=== PATIENT | male | born 1950 ===

== ENCOUNTER 2017-10-09 16:14 | Inpatient (IN) | payer MEDICARE ==
--- NOTE | 2017-10-09 16:56 | ED PDOC ---
HPI: Chest Pain Time Seen by Provider: 10/09/17 16:27 Chief Complaint (Nursing): Chest Pain Chief Complaint (Provider): Chest Pain History Per: Patient History/Exam Limitations: no limitations Onset/Duration Of Symptoms: Hrs (x 5) Current Symptoms Are (Timing): Still Present Additional Complaint(s): Travis Sutherland is a 67 year old man with a past medical history of hypertension and diabetes who presents to the ED complaining of chest pain, onset 5 hours ago. States chest pain started when he was walking. It is midline sub sternal and pressure like but mild. He reports that the pain improves with rest but returns when he ambulates. The patient saw his PMD for symptoms and was sent to the ED for evaluation. He denies ever experiencing similar symptoms. Also denies shortness of breath, dizziness, leg swelling, cough, malaise or fatigue. PMD: Dr. Omkar Canada MD Past Medical History Reviewed: Historical Data, Nursing Documentation, Vital Signs Vital Signs: Last Vital Signs Temp 98 F 10/09/17 16:19 Pulse 68 10/09/17 16:19 Resp 18 10/09/17 16:19 BP 127/64 10/09/17 16:19 Pulse Ox 98 10/09/17 20:03 - Medical History PMH: Diabetes, HTN - Surgical History Other surgeries: right ankle fracture repair - Family History Family History: States: Hypertension Other Family History: anxiety - Social History Current smoker - smoking cessation education provided: No Alcohol: None Drugs: Denies - Home Medications Home Medications: Ambulatory Orders Medication Instructions Recorded Ergocalciferol (Vitamin D2) 50,000 unit PO QWK 10/09/17 [Vitamin D2] Losartan/Hydrochlorothiazide 1 tab PO DAILY 10/09/17 [Hyzaar 100-12.5 Tablet] Sitagliptin Phos/Metformin HCl 1 tab PO BID 10/09/17 [Janumet 50-1,000 mg Tablet] Tamsulosin [Flomax] 0.4 mg PO DAILY 10/09/17 - Allergies Allergies/Adverse Reactions: Allergies Allergy/AdvReac Type Severity Reaction Status Date / Time No Known Allergies Allergy Verified 10/09/17 16:19 Review of Systems ROS Statement: Except As Marked, All Systems Reviewed And Found Negative (as per HPI) Constitutional: Negative for: Malaise, Other (fatigue) Cardiovascular: Positive for: Chest Pain Respiratory: Negative for: Cough, Shortness of Breath Musculoskeletal: Negative for: Other (leg swelling) Neurological: Negative for: Dizziness Physical Exam - Reviewed Nursing Documentation Reviewed: Yes Vital Signs Reviewed: Yes - Physical Exam Appears: Positive for: Non-toxic, No Acute Distress Head Exam: Positive for: ATRAUMATIC, NORMOCEPHALIC Skin: Positive for: Warm, Dry Eye Exam: Positive for: EOMI, PERRL ENT: Negative for: Pharyngeal Erythema, Tonsillar Exudate Neck: Positive for: Painless ROM, Supple Cardiovascular/Chest: Positive for: Regular Rate, Rhythm, Chest Non Tender. Negative for: Murmur Respiratory: Positive for: Normal Breath Sounds. Negative for: Wheezing Gastrointestinal/Abdominal: Positive for: Soft. Negative for: Tenderness Back: Positive for: Normal Inspection. Negative for: Decreased ROM Extremity: Positive for: Normal ROM. Negative for: Deformity Lymphatic: Negative for: Adenopathy Neurologic/Psych: Positive for: Alert. Negative for: Motor/Sensory Deficits - Laboratory Results Result Diagrams: 10/09/17 17:02 10/09/17 17:02 - ECG O2 Sat by Pulse Oximetry: 98 (RA) Pulse Ox Interpretation: Normal Medical Decision Making Medical Decision Making: Impression: chest pain Differential diagnoses include, but are not limited to costochondritis, CHF, pulmonary edema, bronchitis Patient needs to be hospitalized for chest pain due to the cardiac risk factors. He will need serial troponins to rule out acute coronary syndrome. Initial Plan: --Blood screen and type --EKG --BNP --CMP --Urine drug screen --Magnesium --Phosphorus --Troponin I --Troponin I Q8H --Troponin I Q8H --Urine dipstick --CBC --D-Dimer --Partial Thromboplastin time --Prothrombin time --Chest x-ray --Aspirin 162 mg PO Time: 17:03 Chest x-ray FINDINGS: LUNGS: No active pulmonary disease. PLEURA: No significant pleural effusion identified. No pneumothorax apparent. CARDIOVASCULAR: Normal. OSSEOUS STRUCTURES: No significant abnormalities. VISUALIZED UPPER ABDOMEN: Normal. OTHER FINDINGS: None. IMPRESSION: No active disease. Time: 17:57 --Angio Chest PE protocol [CT] was ordered because of high levels in D-Dimer. Time: 19:52 --Discussed with Dr. Costello, hospitalist, to admit patient of Dr. Canada because of chest pain --Discussed with patient and he is aware of plan. Chest CT FINDINGS: Limitations: The examination is degraded by breathing artifact. Pulmonary arteries: No acute embolus in the main, lobar, or segmental pulmonary arteries. No definite filling defects in the subsegmental or more peripheral pulmonary arteries. Aorta: No dissection or other acute abnormality of the imaged aorta. Ectatic ascending aorta, measuring up to 3.7 cm in diameter. Mild fusiform aneurysmal dilation of the descending thoracic aorta, measuring up to 3.3 cm in diameter. Lungs: Minimal bilateral dependent atelectasis. Several noncalcified pulmonary nodules, the largest of which measures 6 mm. The central airways are patent. Pleural space: No pleural fluid collection. No pneumothorax. Heart: Coronary artery calcification. Cardiomegaly. No pericardial fluid collection. Bones/joints: No acute findings. Soft tissues: No acute findings. Lymph nodes: No acute findings. IMPRESSION: 1. Evaluation for pulmonary emboli is limited by breathing artifact. No central pulmonary embolus. No definite filling defects in the subsegmental or more peripheral pulmonary arteries but small, peripheral pulmonary emboli cannot be excluded. 2. Coronary artery calcification. Cardiomegaly. 3. Several subcentimeter pulmonary nodules. Follow up per institution protocol. 4. Additional non-acute findings as described above. Scribe Attestation: Documented by Norma Velasco, acting as a scribe for Kelly Dietrich MD Provider Scribe Attestation: All medical record entries made by the Scribe were at my direction and personally dictated by me. I have reviewed the chart and agree that the record accurately reflects my personal performance of the history, physical exam, medical decision making, and the department course for this patient. I have also personally directed, reviewed, and agree with the discharge instructions and disposition. Disposition - Clinical Impression Clinical Impression: Chest pain, Angina effort - Disposition Disposition Time: 16:45 Condition: FAIR - Pt Status Changed To: Hospital Disposition Of: Observation - POA Present On Arrival: None
[2017-10-09 17:11] LABS: BASO % 0.5 % (0.0-2.0); EOS # 0.1 K/uL (0.0-0.7); HEMATOCRIT 42.1 % (35.0-51.0); LYMPH # 2.5 K/uL (1.0-4.3); MEAN CELL VOLUME 93.2 fl (80.0-94.0); MEAN CORPUSCULAR HEMOGLOBIN 31.6 pg (27.0-31.0); MEAN CORPUSCULAR HGB CONC 33.9 g/dL (33.0-37.0); MEAN PLATELET VOLUME 8.9 fl (7.2-11.7); MONO # 0.7 K/uL (0.0-0.8); MONO % 10.1 % (0.0-10.0); NEUT # 3.7 K/uL (1.8-7.0); NEUT % 52.4 % (50.0-75.0); NRBC % 0.1 % (0.0-0.0); RED CELL DISTRIBUTION WIDTH 12.8 % (11.5-14.5); WHITE BLOOD COUNT 7.1 K/uL (4.8-10.8)
[2017-10-09 17:24] LABS: ALB/GLOB RATIO 1.4 (1.0-2.1); ALKALINE PHOSPHATASE 63 U/L (38-126); ALT/SGPT 53 U/L (21-72); AST/SGOT 28 U/L (17-59); BILIRUBIN,TOTAL 0.6 mg/dl (0.2-1.3); BLOOD UREA NITROGEN 14 mg/dl (9-20); CALCIUM 9.5 mg/dL (8.4-10.2); CARBON DIOXIDE 25 mmol/L (22-30); CHLORIDE 103 mmol/L (98-107); GFR AFRICAN-AMERICAN > 60; GLUCOSE,RANDOM 118 mg/dL (75-110); MAGNESIUM 1.9 MG/DL (1.6-2.3); POTASSIUM 3.9 MMOL/L (3.6-5.0); SODIUM 139 mmol/l (132-148); TOTAL PROTEIN 7.6 G/DL (6.3-8.2)
[2017-10-09 17:33] LABS: PARTIAL THROMBOPLASTIN TIME 26.9 Seconds (25.6-37.1)
--- NOTE | 2017-10-09 18:26 | RAD ---
HISTORY: Chest pain. COMPARISON: No prior. TECHNIQUE: Chest PA and lateral FINDINGS: LUNGS: No active pulmonary disease. PLEURA: No significant pleural effusion identified. No pneumothorax apparent. CARDIOVASCULAR: Normal. OSSEOUS STRUCTURES: No significant abnormalities. VISUALIZED UPPER ABDOMEN: Normal. OTHER FINDINGS: None. IMPRESSION: No active disease. Concordant results with the preliminary interpretation rendered by the emergency department physician procedure.
[2017-10-09] MEDS ORDERED: Sodium Chloride 0.9% 50 ML IV ONE (18:41)
[2017-10-09] MEDS ORDERED: Iodixanol 320 MG/ML 100 ML BOTTLE IV ONE (18:41)
--- NOTE | 2017-10-09 20:06 | CP.PCM.HP ---
History of Present Illness - History of Present Illness History of Present Illness: CC: CP HPI: This is a 67 y/o male with MHx sig for HTN and DM2 who comes in with c/o CP. He apparently developed CP this AM while walking. He went to see his PCP who sent him to the ER for w/u. Patient states pain had onset with ambulation today, it was sscp without radiation; there was no SOB, no palpitation. Pain resolved on its own after some time. Patient has never had symptoms like this in the past. No cough/f/c/n/v/d. PCP: Nancie ROS: 14 systems reviewed, negative other than HPI MHx: HTN, DM2 SHx: R ankle Allergies: NKDA Medications: as per med rec Family Hx: Reviewed, negative other than HPI Social Hx: Lives with family, no tobacco, occasional EtOH Surrogate: , info on chart Present on Admission - Present on Admission Any Indicators Present on Admission: No Past Patient History - Past Social History Alcohol: None Drugs: Denies - CARDIAC Hx Hypertension: Yes - ENDOCRINE/METABOLIC Hx Diabetes Mellitus Type 1: Yes - PSYCHIATRIC Hx Substance Use: No - SURGICAL HISTORY Hx Surgeries: Yes - ANESTHESIA Hx Anesthesia: Yes Meds Allergies/Adverse Reactions: Allergies Allergy/AdvReac Type Severity Reaction Status Date / Time No Known Allergies Allergy Verified 10/09/17 16:19 Physical Exam - Constitutional Appears: No Acute Distress - Head Exam Head Exam: ATRAUMATIC, NORMOCEPHALIC - Eye Exam Eye Exam: EOMI, PERRL - ENT Exam ENT Exam: Mucous Membranes Moist - Neck Exam Neck exam: Positive for: Full Rom - Respiratory Exam Respiratory Exam: Clear to Auscultation Bilateral, NORMAL BREATHING PATTERN - Cardiovascular Exam Cardiovascular Exam: REGULAR RHYTHM, +S1, +S2 - GI/Abdominal Exam GI & Abdominal Exam: Normal Bowel Sounds, Soft - Extremities Exam Extremities exam: Positive for: full ROM, normal inspection - Neurological Exam Neurological exam: Alert, CN II-XII Intact, Oriented x3 - Psychiatric Exam Psychiatric exam: Normal Affect, Normal Mood Results - Vital Signs Recent Vital Signs: Last Vital Signs Temp 98 F 10/09/17 16:19 Pulse 68 10/09/17 16:19 Resp 18 10/09/17 16:19 BP 127/64 10/09/17 16:19 Pulse Ox 98 10/09/17 20:03 - Labs Result Diagrams: 10/09/17 17:02 10/09/17 17:02 Labs: Laboratory Results - last 24 hr 10/09/17 10/09/17 10/09/17 16:47 17:02 17:02 WBC 7.1 RBC 4.52 Hgb 14.3 Hct 42.1 MCV 93.2 MCH 31.6 H MCHC 33.9 RDW 12.8 Plt Count 182 MPV 8.9 Neut % (Auto) 52.4 Lymph % (Auto) 36.0 [place] % (Auto) 10.1 H Eos % (Auto) 1.0 Baso % (Auto) 0.5 Neut # 3.7 Lymph # 2.5 [place] # 0.7 Eos # 0.1 Baso # 0.0 PT INR APTT D-Dimer, Quantitative Sodium 139 Potassium 3.9 Chloride 103 Carbon Dioxide 25 Anion Gap 15 BUN 14 Creatinine 1.0 Est GFR ( Amer) > 60 Est GFR (Non-Af Amer) > 60 Random Glucose 118 H Calcium 9.5 Phosphorus 4.0 Magnesium 1.9 Total Bilirubin 0.6 AST 28 ALT 53 Alkaline Phosphatase 63 Troponin I 0.0270 NT-Pro-B Natriuret Pep 96.4 Total Protein 7.6 Albumin 4.4 Globulin 3.2 Albumin/Globulin Ratio 1.4 Urine Opiates Screen Urine Methadone Screen Ur Barbiturates Screen Ur Phencyclidine Scrn Ur Amphetamines Screen U Benzodiazepines Scrn U Oth Cocaine Metabols U Cannabinoids Screen Blood Type O POSITIVE Antibody Screen Negative BBK History Checked No verified bt 10/09/17 10/09/17 17:02 17:06 WBC RBC Hgb Hct MCV MCH MCHC RDW Plt Count MPV Neut % (Auto) Lymph % (Auto) [place] % (Auto) Eos % (Auto) Baso % (Auto) Neut # Lymph # [place] # Eos # Baso # PT 10.7 INR 1.0 APTT 26.9 D-Dimer, Quantitative 2271 H Sodium Potassium Chloride Carbon Dioxide Anion Gap BUN Creatinine Est GFR ( Amer) Est GFR (Non-Af Amer) Random Glucose Calcium Phosphorus Magnesium Total Bilirubin AST ALT Alkaline Phosphatase Troponin I NT-Pro-B Natriuret Pep Total Protein Albumin Globulin Albumin/Globulin Ratio Urine Opiates Screen Negative Urine Methadone Screen Negative Ur Barbiturates Screen Negative Ur Phencyclidine Scrn Negative Ur Amphetamines Screen Negative U Benzodiazepines Scrn Negative U Oth Cocaine Metabols Negative U Cannabinoids Screen Negative Blood Type Antibody Screen BBK History Checked - EKG Data EKG Interpreted by: Myself EKG shows normal: Sinus rhythm Rate: Normal - Imaging and Cardiology Chest x-ray Status: Image reviewed by me (No findings of note), Report reviewed by me Assessment & Plan (1) Chest pain Assessment and Plan: 67 y/o male with HTN and DM2 presenting with CP. 1) CP, r/o ACS -tele obs -serial trops, AM EKG -Echo in AM -Lipid panel in AM -Cont ASA 325, SLNG for CP 2) DM2 -achs accucheck -SSI only for now, resume PO medications in AM if otherwise stable and ready for discharge -DM2 diet 3) HTN -- cont home medications 4) DVT PPx -- SQ Lovenox Status: Acute (2) HTN (hypertension) Status: Acute (3) DM2 (diabetes mellitus, type 2) Status: Acute (4) DVT prophylaxis Status: Acute
[2017-10-09] MEDS: Insulin Lispro (humaLOG) 100 Units/ml Inj SC SCH (22:35)
[2017-10-10] MEDS ORDERED: Pneumococcal 23-Valent Vaccine IM ONE (06:00)
[2017-10-10] MEDS: Insulin Lispro (humaLOG) 100 Units/ml Inj SC SCH ×4 (06:39→22:07)
[2017-10-10 07:16] LABS: MEAN CELL VOLUME 92.9 fl (80.0-94.0); MEAN CORPUSCULAR HGB CONC 34.4 g/dL (33.0-37.0); RED CELL DISTRIBUTION WIDTH 13.2 % (11.5-14.5); WHITE BLOOD COUNT 8.4 K/uL (4.8-10.8)
[2017-10-10 07:52] LABS: BLOOD UREA NITROGEN 14 mg/dl (9-20); CALCIUM 9.1 mg/dL (8.4-10.2); CARBON DIOXIDE 26 mmol/L (22-30); CHLORIDE 103 mmol/L (98-107); CHOLESTEROL 185 mg/dL (0-199); GFR AFRICAN-AMERICAN > 60; GLUCOSE,RANDOM 105 mg/dL (75-110); POTASSIUM 3.7 MMOL/L (3.6-5.0); SODIUM 139 mmol/l (132-148)
[2017-10-10] MEDS: Enoxaparin 40 mg Syringe SC SCH (09:00)
--- NOTE | 2017-10-10 09:28 | CT ---
PROCEDURE: CT Chest with contrast (Pulmonary Angiogram) HISTORY: exertional chest pain Ddimer 2270 COMPARISON: Chest radiograph 10/09/2017. TECHNIQUE: Axial computed tomography images were obtained of the chest in the pulmonary arterial phase of enhancement. Coronal and sagittal reformatted images were created and reviewed. Intravenous contrast dose: Visipaque 320, 95 cc. Radiation dose: Total exam DLP = 452.74 mGy-cm. This CT exam was performed using one or more of the following dose reduction techniques: Automated exposure control, adjustment of the mA and/or kV according to patient size, and/or use of iterative reconstruction technique. FINDINGS: PULMONARY ARTERIES: Unremarkable. No pulmonary embolism. AORTA: No acute findings. No thoracic aortic aneurysm. LUNGS: Limited bilateral basilar dependent atelectasis appreciate without overt infiltrate appreciated bilaterally. Note is made of a 5 mm hazy nodular density identified abutting the anterior superior margins of the minor fissure in image 46 series 5 with a 2nd more definitive nodule measuring 6 mm identified at the junction of the minor and major fissures in image 55. No dominant mass is appreciable. Central airways appear clear. PLEURAL SPACES: Unremarkable. No effusion or pneuomothorax. HEART: Mild cardiomegaly is noted. No pulmonary vascular derangement identified throughout. LYMPH NODES: No lymphadenopathy. BONES, CHEST WALL: Unremarkable. No fracture or destructive lesion OTHER FINDINGS: Unremarkable. IMPRESSION: 1. No definite pulmonary embolus identified. 2. Limited bilateral basilar dependent atelectasis. No infiltrate pleural or pericardial effusion. Mild cardiomegaly noted. 3. 2 pulmonary nodules are identified which are both subpleural and noncalcified for which follow-up chest CT is advised in 12 months demonstrate stability of this pattern. Lung Rads 2. Concordant preliminary report from [facility], 10/09/2017.
--- NOTE | 2017-10-10 10:46 | CARD ---
APPROVED REPORT EKG Measurement Heart [id number] <Conclusion> Sinus bradycardia Left axis deviation Nonspecific intraventricular conduction delay Abnormal ECG
--- NOTE | 2017-10-10 11:01 | CARD ---
APPROVED REPORT EKG Measurement Heart [id number] <Conclusion> Normal sinus rhythm Non-specific ST-T changes
--- NOTE | 2017-10-10 11:09 | CP.PCM.PN ---
Subjective - Date & Time of Evaluation Date of Evaluation: 10/10/17 Time of Evaluation: 10:00 - Subjective Subjective: CP resolved CP occurred when walking no palpitation no diaphoresis no SOB no abd pain Objective - Vital Signs/Intake and Output Vital Signs (last 24 hours): Temp Pulse Resp BP Pulse Ox 97.6 F 56 L 20 147/81 95 10/10/17 08:00 10/10/17 09:00 10/10/17 08:00 10/10/17 08:59 10/10/17 08:00 - Medications Medications: Current Medications Acetaminophen (Tylenol 325mg Tab) 650 mg PO Q6 PRN PRN Reason: Pain, Mild (1-3) Last Admin: 10/10/17 04:49 Dose: 650 mg Aspirin (Aspirin) 325 mg PO DAILY [facility] Last Admin: 10/10/17 08:56 Dose: 325 mg Atorvastatin Calcium (Lipitor) 20 mg PO DAILY [facility] Enoxaparin Sodium (Lovenox) 40 mg SC DAILY [facility] PRN Reason: Protocol Last Admin: 10/10/17 09:00 Dose: 40 mg Hydrochlorothiazide (Microzide) 12.5 mg PO DAILY [facility] Last Admin: 10/10/17 09:00 Dose: 12.5 mg Insulin Human Lispro (Humalog) 0 units SC ACHS [facility] PRN Reason: Protocol Last Admin: 10/10/17 06:39 Dose: Not Given Losartan Potassium (Cozaar) 100 mg PO DAILY [facility] Last Admin: 10/10/17 08:59 Dose: 100 mg Nitroglycerin (Nitrostat Sl Tab) 0.4 mg SL Q5M PRN PRN Reason: chest pain Tamsulosin HCl (Flomax) 0.4 mg PO DAILY [facility] Last Admin: 10/10/17 09:00 Dose: 0.4 mg - Labs Labs: 10/10/17 06:00 10/10/17 04:15 PT 10.7 Seconds (9.8-13.1) 10/09/17 17:02 INR 1.0 (0.9-1.2) 10/09/17 17:02 APTT 26.9 Seconds (25.6-37.1) 10/09/17 17:02 - Constitutional Appears: Non-toxic, No Acute Distress - Head Exam Head Exam: NORMAL INSPECTION, NORMOCEPHALIC - Eye Exam Eye Exam: EOMI, Normal appearance, PERRL Pupil Exam: NORMAL ACCOMODATION - ENT Exam ENT Exam: Mucous Membranes Moist, Normal External Ear Exam - Neck Exam Neck Exam: Full ROM. absent: Meningismus - Respiratory Exam Respiratory Exam: NORMAL BREATHING PATTERN. absent: Respiratory Distress - Cardiovascular Exam Cardiovascular Exam: REGULAR RHYTHM, +S1, +S2 - GI/Abdominal Exam GI & Abdominal Exam: Soft, Normal Bowel Sounds - Extremities Exam Extremities Exam: Full ROM, Normal Capillary Refill. absent: Calf Tenderness - Back Exam Back Exam: Full ROM. absent: CVA tenderness (L), CVA tenderness (R) - Neurological Exam Neurological Exam: Alert, Awake, CN II-XII Intact, Oriented x3 Neuro motor strength exam: Left Upper Extremity: 5, Right Upper Extremity: 5, Left Lower Extremity: 5, Right Lower Extremity: 5 - Psychiatric Exam Psychiatric exam: Normal Affect, Normal Mood - Skin Skin Exam: Dry, Normal Color, Warm Assessment and Plan - Assessment and Plan (Free Text) Assessment: 67 y/o gent , with hx of HTN, DM, presented with Chest Pain with exertion (1) Chest pain - Pt admitted to Telemetry -serial troponin negative x 3 -Echo -Cont ASA 325, SLNG for CP , Statin and ARB, no BB sec to ernesto - Cardio con sulted- Dr Fong rec Nuclear Stress test - CTA of chest : neg PE (2) HTN (hypertension) chronic cont Losartan HCTZ (3) DM2 (diabetes mellitus, type 2) accucheck Hold Metforminas pt had CTA/IV contrast (4) DVT prophylaxis Status: Acute Lovenox
--- NOTE | 2017-10-10 12:03 | CARD ---
APPROVED REPORT EXAM: Two-dimensional and M-mode echocardiogram with Doppler and color Doppler. Other Information Quality : GoodRhythm : NSR INDICATION Chest Pain 2D DIMENSIONS IVSd1.23 (0.7-1.1cm)LVDd4.48 (3.9-5.9cm) LVOT Diameter2.41 (1.8-2.4cm)PWd1.39 (0.7-1.1cm) IVSs1.85 (0.8-1.2cm)LVDs2.85 (2.5-4.0cm) FS (%) 36.4 %PWs1.91 (0.8-1.2cm) M-Mode DIMENSIONS Left Atrium (MM)4.50 (2.5-4.0cm)IVSd1.18 (0.7-1.1cm) Aortic Root3.62 (2.2-3.7cm)LVDd5.21 (4.0-5.6cm) Aortic Cusp Exc.2.29 (1.5-2.0cm)PWd1.29 (0.7-1.1cm) IVSs1.47 cmFS (%) 27 % LVDs3.79 (2.0-3.8cm)PWs1.59 cm Mitral Valve MV E Celesrwa56.8cm/sMV DECEL [id number] A Zwhsvkau88.3cm/s MV LQQ55ayT/A ratio0.8MVA (PHT)2.49cm2 TDI Lateral E' Peak V9.86cm/sMedial E' Peak V5.54cm/sE/Lateral E'4.3 E/Medial E'7.7 Pulmonary Valve PV Peak Dakdhnpi236.4cm/s LEFT VENTRICLE The left ventricle is normal size. There is mild concentric left ventricular hypertrophy. The left ventricular function is normal. The left ventricular ejection fraction is - 65-70%. There is normal LV segmental wall motion. Transmitral Doppler flow pattern is Grade I-abnormal relaxation pattern. No left ventricle thrombus noted on this study. There is no ventricular septal defect visualized. There is no left ventricular aneurysm. There is no mass noted in the left ventricle. RIGHT VENTRICLE The right ventricle is normal size. There is normal right ventricular wall thickness. The right ventricular systolic function is normal. ATRIA The left atrium is mildly dilated. There is no thrombus suspected in the left atrium. The right atrium size is normal. The interatrial septum is intact with no evidence for an atrial septal defect. AORTIC VALVE The aortic valve is normal in structure. No aortic regurgitation is present. There is no aortic valvular stenosis. MITRAL VALVE The mitral valve is normal in structure. There is no evidence of mitral valve prolapse. There is no mitral valve stenosis. There is no mitral valve regurgitation noted. TRICUSPID VALVE The tricuspid valve is normal in structure. There is trace tricuspid regurgitation. There is no tricuspid valve prolapse or vegetation. There is no tricuspid valve stenosis. PULMONIC VALVE The pulmonary valve is normal in structure. There is no pulmonic valvular regurgitation. GREAT VESSELS The aortic root is normal in size. The IVC was not well visualized. PERICARDIAL EFFUSION The pericardium appears normal. There is no pleural effusion. <Conclusion> The left ventricle is normal size. There is mild concentric left ventricular hypertrophy. The left ventricular function is normal. The left ventricular ejection fraction is - 65-70%. The left atrium is mildly dilated. The mitral, aortic and tricuspid valves are normal. There is trace tricuspid regurgitation.
--- NOTE | 2017-10-10 18:30 | CON ---
DATE: CARDIOLOGY CONSULTATION REASON FOR CONSULTATION: Chest pain. HISTORY OF PRESENT ILLNESS: The patient is a 67 years old male who has a history of hypertension and otherwise no known prior cardiac history. The patient is here because of external chest pain while walking. The patient was referred by his primary physician, Dr. Canada, to the emergency room. The patient denies any associated diaphoresis or shortness of breath with chest discomfort. SOCIAL HISTORY: Nonsmoker and nondrinker. PAST MEDICAL HISTORY: Hypertension and diabetes mellitus. MEDICATIONS: Aspirin 325 mg once a day, Cozaar 100 mg once a day, Flomax 0.4 mg once a day, Lovenox 40 mg subcutaneously once a day, and hydrochlorothiazide 12.5 mg once a day. REVIEW OF SYSTEMS: No nausea or vomiting. No fever or chills. PHYSICAL EXAMINATION: GENERAL: The patient is an elderly male who does not appear to be in acute distress. VITAL SIGNS: Blood pressure 147/81, heart rate 62, temperature 97.6, respirations 20. HEENT: Normocephalic. NECK: No JVD. CHEST: Clear. HEART: S1 and S2, regular. ABDOMEN: Soft. EXTREMITIES: No edema. LABORATORY DATA: SMA-7 is within normal limit today. Triglycerides are elevated to 136. Rest of lipid profile is within normal limits. Three sets of troponins are not in the elevated range. D-dimer is elevated at 2271. Urine drug screen is negative. CT angio of the chest revealed no pulmonary embolus, limited bilateral basal dependant atelectasis, no infiltrates or pleural effusion. Pulmonary nodules are identified. EKG done yesterday revealed normal sinus rhythm with nonspecific anterior Q wave changes. Today's EKG revealed sinus bradycardia, rate of 57 with nonspecific intraventricular conduction delay. ASSESSMENT: 1. Chest pain, myocardial infarction ruled out. 2. Hypertension and diabetes mellitus. 3. Hyperlipidemia. RECOMMENDATIONS: Continue Cozaar, aspirin, subcutaneous Lovenox, hydrochlorothiazide. Start Lipitor 20 mg once a day. Schedule the patient for exercise Myoview stress test. Herberth Fong MD
[2017-10-11] MEDS: Insulin Lispro (humaLOG) 100 Units/ml Inj SC SCH ×4 (06:47→21:17)
[2017-10-11] MEDS: Enoxaparin 40 mg Syringe SC SCH (11:40)
--- NOTE | 2017-10-11 19:15 | CP.PCM.PN ---
Subjective - Date & Time of Evaluation Date of Evaluation: 10/11/17 Time of Evaluation: 11:45 - Subjective Subjective: Pt feels fine no CP No SOB no palpitation no abd pain Went for Myocardial stress test Objective - Vital Signs/Intake and Output Vital Signs (last 24 hours): Temp Pulse Resp BP Pulse Ox 98.2 F 84 20 133/78 98 10/11/17 15:50 10/11/17 15:50 10/11/17 15:50 10/11/17 15:50 10/11/17 15:50 Intake and Output: 10/11/17 10/12/17 18:59 06:59 Intake Total 860 Balance 860 - Medications Medications: Current Medications Acetaminophen (Tylenol 325mg Tab) 650 mg PO Q6 PRN PRN Reason: Pain, Mild (1-3) Last Admin: 10/10/17 22:07 Dose: 650 mg Aspirin (Aspirin) 325 mg PO DAILY [facility] Last Admin: 10/11/17 11:38 Dose: 325 mg Atorvastatin Calcium (Lipitor) 20 mg PO DAILY [facility] Last Admin: 10/11/17 11:40 Dose: 20 mg Enoxaparin Sodium (Lovenox) 40 mg SC DAILY [facility] PRN Reason: Protocol Last Admin: 10/11/17 11:40 Dose: 40 mg Hydrochlorothiazide (Microzide) 12.5 mg PO DAILY [facility] Last Admin: 10/11/17 11:41 Dose: 12.5 mg Insulin Human Lispro (Humalog) 0 units SC ACHS [facility] PRN Reason: Protocol Last Admin: 10/11/17 16:23 Dose: 3 units Losartan Potassium (Cozaar) 100 mg PO DAILY [facility] Last Admin: 10/11/17 11:39 Dose: 100 mg Nitroglycerin (Nitrostat Sl Tab) 0.4 mg SL Q5M PRN PRN Reason: chest pain Tamsulosin HCl (Flomax) 0.4 mg PO DAILY [facility] Last Admin: 10/11/17 11:40 Dose: 0.4 mg - Labs Labs: 10/10/17 06:00 10/10/17 04:15 PT 10.7 Seconds (9.8-13.1) 10/09/17 17:02 INR 1.0 (0.9-1.2) 10/09/17 17:02 APTT 26.9 Seconds (25.6-37.1) 10/09/17 17:02 - Constitutional Appears: Non-toxic, No Acute Distress - Head Exam Head Exam: NORMAL INSPECTION, NORMOCEPHALIC - Eye Exam Eye Exam: EOMI, Normal appearance, PERRL Pupil Exam: NORMAL ACCOMODATION - ENT Exam ENT Exam: Mucous Membranes Moist, Normal External Ear Exam - Neck Exam Neck Exam: Full ROM. absent: Meningismus - Respiratory Exam Respiratory Exam: NORMAL BREATHING PATTERN. absent: Respiratory Distress - Cardiovascular Exam Cardiovascular Exam: REGULAR RHYTHM, +S1, +S2 - GI/Abdominal Exam GI & Abdominal Exam: Soft, Normal Bowel Sounds - Extremities Exam Extremities Exam: Full ROM, Normal Capillary Refill. absent: Calf Tenderness - Back Exam Back Exam: Full ROM. absent: CVA tenderness (L), CVA tenderness (R) - Neurological Exam Neurological Exam: Alert, Awake, CN II-XII Intact, Oriented x3 Neuro motor strength exam: Left Upper Extremity: 5, Right Upper Extremity: 5, Left Lower Extremity: 5, Right Lower Extremity: 5 - Psychiatric Exam Psychiatric exam: Normal Affect, Normal Mood - Skin Skin Exam: Dry, Normal Color, Warm Assessment and Plan 67 y/o gent , with hx of HTN, DM, presented with Chest Pain with exertion (1) Chest pain - Pt admitted to Telemetry -serial troponin negative x 3 -Echo : normal LV fxn and wall motion -Cont ASA 325, SLNG for CP , Statin and ARB, no BB sec to ernesto - Cardio con sulted- Dr Fong rec Nuclear Stress test - CTA of chest : neg PE (2) HTN (hypertension) chronic cont Losartan HCTZ (3) DM2 (diabetes mellitus, type 2) accucheck with coverage for now Hold Metformin as pt had CTA/IV contrast (4) DVT prophylaxis Status: Acute Lovenox
--- NOTE | 2017-10-11 20:16 | PN ---
DATE: SUBJECTIVE: The patient denies chest pain. PHYSICAL EXAMINATION: VITAL SIGNS: Blood pressure 133/78, heart rate 84, temperature 98.2, respirations 20. HEENT: Normocephalic. NECK: No JVD. CHEST: Clear. HEART: S1, S2, regular. ABDOMEN: Soft. EXTREMITIES: No edema. LABORATORY DATA: Today's blood sugars are 165, 215, and 220. Echocardiographic study revealed mild concentric LVH with normal ejection fraction, mild in the left atrium. ASSESSMENT: 1. Chest pain, myocardial infarction is ruled out. 2. Uncontrolled diabetes mellitus. 3. Hypertriglyceridemia. RECOMMENDATIONS: Continue aspirin 325 mg once a day, Cozaar 100 mg once a day, Lipitor 20 mg once a day, Lovenox 40 mg subcutaneous once a day and we will follow up the Myoview stress test that was performed today. Herberth Fong MD
[2017-10-11] MEDS ORDERED: Insulin Detemir 100 Units/ml Inj SC ONE (22:00)
[2017-10-11 23:56] VITALS: RESP 18
[2017-10-12 05:12] VITALS: O2SAT 96
[2017-10-12] MEDS: Insulin Lispro (humaLOG) 100 Units/ml Inj SC SCH ×2 (06:30→13:13)
[2017-10-12 08:00] VITALS: BP 133/70; PULSE 60
[2017-10-12] MEDS: Enoxaparin 40 mg Syringe SC SCH (09:10)
[2017-10-12 10:20] VITALS: TEMP 98.3
--- NOTE | 2017-10-12 11:44 | CP.PCM.DIS ---
Provider - Provider Date of Admission: 10/10/17 11:09 Attending physician: Franky Sahu MD Primary care physician: Dr. Canada Consults: Dr. Fong, financial assistance specialist Time Spent in preparation of Discharge (in minutes): 25 Hospital Course - Lab Results Lab Results: Most Recent Lab Values WBC 8.4 K/uL (4.8-10.8) 10/10/17 06:00 RBC 4.53 Mil/uL (4.40-5.90) 10/10/17 06:00 Hgb 14.5 g/dL (12.0-18.0) 10/10/17 06:00 Hct 42.0 % (35.0-51.0) 10/10/17 06:00 MCV 92.9 fl (80.0-94.0) 10/10/17 06:00 MCH 32.0 pg (27.0-31.0) H 10/10/17 06:00 MCHC 34.4 g/dL (33.0-37.0) 10/10/17 06:00 RDW 13.2 % (11.5-14.5) 10/10/17 06:00 Plt Count 174 K/uL (130-400) 10/10/17 06:00 MPV 8.9 fl (7.2-11.7) 10/09/17 17:02 Neut % (Auto) 52.4 % (50.0-75.0) 10/09/17 17:02 Lymph % (Auto) 36.0 % (20.0-40.0) 10/09/17 17:02 Williamson % (Auto) 10.1 % (0.0-10.0) H 10/09/17 17:02 Eos % (Auto) 1.0 % (0.0-4.0) 10/09/17 17:02 Baso % (Auto) 0.5 % (0.0-2.0) 10/09/17 17:02 Neut # 3.7 K/uL (1.8-7.0) 10/09/17 17:02 Lymph # 2.5 K/uL (1.0-4.3) 10/09/17 17:02 Williamson # 0.7 K/uL (0.0-0.8) 10/09/17 17:02 Eos # 0.1 K/uL (0.0-0.7) 10/09/17 17:02 Baso # 0.0 K/uL (0.0-0.2) 10/09/17 17:02 PT 10.7 Seconds (9.8-13.1) 10/09/17 17:02 INR 1.0 (0.9-1.2) 10/09/17 17:02 APTT 26.9 Seconds (25.6-37.1) 10/09/17 17:02 D-Dimer, Quantitative 2271 ng/mlDDU (0-230) H 10/09/17 17:02 Sodium 139 mmol/l (132-148) 10/10/17 04:15 Potassium 3.7 MMOL/L (3.6-5.0) 10/10/17 04:15 Chloride 103 mmol/L (98-107) 10/10/17 04:15 Carbon Dioxide 26 mmol/L (22-30) 10/10/17 04:15 Anion Gap 14 (10-20) 10/10/17 04:15 BUN 14 mg/dl (9-20) 10/10/17 04:15 Creatinine 0.9 mg/dl (0.8-1.5) 10/10/17 04:15 Est GFR ( Amer) > 60 10/10/17 04:15 Est GFR (Non-Af Amer) > 60 10/10/17 04:15 POC Glucose (mg/dL) 200 mg/dL (65-110) H 10/12/17 10:56 Random Glucose 105 mg/dL (75-110) 10/10/17 04:15 Calcium 9.1 mg/dL (8.4-10.2) 10/10/17 04:15 Phosphorus 4.0 mg/dl (2.5-4.5) 10/09/17 17:02 Magnesium 1.9 MG/DL (1.6-2.3) 10/09/17 17:02 Total Bilirubin 0.6 mg/dl (0.2-1.3) 10/09/17 17:02 AST 28 U/L (17-59) 10/09/17 17:02 ALT 53 U/L (21-72) 10/09/17 17:02 Alkaline Phosphatase 63 U/L (38-126) 10/09/17 17:02 Troponin I 0.0270 ng/mL (0.00-0.120) 10/10/17 09:45 NT-Pro-B Natriuret Pep 96.4 pg/ml (0-900) 10/09/17 17:02 Total Protein 7.6 G/DL (6.3-8.2) 10/09/17 17:02 Albumin 4.4 g/dL (3.5-5.0) 10/09/17 17:02 Globulin 3.2 gm/dL (2.2-3.9) 10/09/17 17:02 Albumin/Globulin Ratio 1.4 (1.0-2.1) 10/09/17 17:02 Triglycerides 236 mg/DL (0-149) H 10/10/17 04:15 Cholesterol 185 mg/dL (0-199) 10/10/17 04:15 LDL Cholesterol Direct 94 mg/dL (0-129) 10/10/17 04:15 HDL Cholesterol 32 MG/DL (30-70) 10/10/17 04:15 Urine Opiates Screen Negative (NEGATIVE) 10/09/17 17:06 Urine Methadone Screen Negative (NEGATIVE) 10/09/17 17:06 Ur Barbiturates Screen Negative (NEGATIVE) 10/09/17 17:06 Ur Phencyclidine Scrn Negative (NEGATIVE) 10/09/17 17:06 Ur Amphetamines Screen Negative (NEGATIVE) 10/09/17 17:06 U Benzodiazepines Scrn Negative (NEGATIVE) 10/09/17 17:06 U Oth Cocaine Metabols Negative (NEGATIVE) 10/09/17 17:06 U Cannabinoids Screen Negative (NEGATIVE) 10/09/17 17:06 Blood Type O POSITIVE 10/09/17 16:47 Antibody Screen Negative 10/09/17 16:47 BBK History Checked No verified bt 10/09/17 16:47 - Hospital Course Hospital Course: This is a 67-year-old male with a past medical history significant for hypertension, type 2 diabetes, who presented to the emergency department on 02/2017 with the complaint of chest pain. The pain was exertional in nature and occurred while walking. The patient was worked up in the emergency department and found to have a negative troponin and normal EKG. CTA of chest was also performed and PE was fuled out. The patient was then admitted for further cardiac workup. He was found to have negative troponin x 3, Echo showing normal LV function and wall motion, and a normal nuclear stress test. Today, the patient is chest pain free. He states that he feels well. He was discharge to home today in stable condition. Discharge Exam - Head Exam Head Exam: NORMAL INSPECTION, NORMOCEPHALIC - Additional Findings Additional findings: Physical exam: Constitutional- cooperative, awake, alert. Head- NCAT, PERRL Eye- PERRL, normal accommodation ENT- normal exam, MMM. Neck- normal inspection, supple, no JVD Respiratory- CTAB, no wheezes rales rhonchi Cardiovascular- RRR, +S1, +S2 no MRG GI/Abdominal- normal bowel sounds, soft, no mass, no hsm Skin- warm, dry Extremities Exam- normal capillary refill, normal inspection Neurological Exam- alert, stable gait Psych- normal mood, normal affect Discharge Plan - Follow Up Plan Condition: FAIR Disposition: HOME/ ROUTINE Additional Instructions: need ff up CT of chest in 12 mos to ff up on small pulmonary nodules
--- NOTE | 2017-10-13 11:00 | CARD ---
APPROVED REPORT Protocol: ALLISON Test Type: Stress Nuclear Medications: COZAAR 100MG, FLOMAX 0.4MG, LOVENOX 40MG, HYDROCHLOROTHIAZIDE 12.5MG, LIPITOR 20MG Medical History: HYPERTENSION, DIABETES Target HR: 155 bpm Resting ECG: nsr with poor R prog Resting Heart Rate: 80 bpm Resting Blood Pressure: 149/98mmHg submaximum (85%): 132 bpm TEST SUMMARY [id number]/98.0. [id number]. PRETESTHYPERV.00:[id number]/98.0. PRETESTWARM-UP00:[id number]. EXERCISESTAGE 103:[id number]/80.0. EXERCISESTAGE 200:[id number]/110.2. [id number]. POST EXERCISE Reason for Termination: Exaggerated BP increase Target HR: No Max HR: 113 bpm 73% of Maximum Predicted HR: 155 bpm Exercise duration: 03:55 min:sec, 2 Stage Exercise capacity: 5.7METs Max Blood Pressure: 220/110mmHg Blood Pressure response to exercise: resting hypertension - exaggerated response Heart Rate response to exercise: appropriate Chest Pain: No, none Angina index: 0 Arrhythmia: Yes, ventricular premature beats-isolated ST Change: No, none Deviation: 0 mm Stress EKG Interpretation The patient exercised for 3:55 on the Allison Protocol achieving a peak HR of 113 bpm 73% of the maximal peak heart rate 155 bpm.( 5.7 mets) The test was stopped due to hypertensive BP response No chest pain was reported Moderately decreased functional capacity Normal Heart Rate and Exaggerated Bp response with hypertension at rest (Rate Pressure Product 24,860) Isolated PVC noted Baseline EKG NSR with Q v1v2 nonspecific st-t changes lateral leads( V4, V5, AVL)/Normal upsloping st segments with exercise EXAM: Myocardial Perfusion REST/STRESS Image QualityGood Imaging Protocol The imaging protocol used to acquire images was Rest Tc-99m/stress Tc-99m 1 day Rest Spect myocardial perfusion imaging was performed in supine position 60 minutes following the injection of 10 mCi of Tc-99 Myoview. Time of rest injection: 7:43 Time of rest imagin:42 At peak stress, the patient was injected intravenously with 30mCi of Tc-99 tetrofosmin after an infusion time of minutes and seconds. Time of stress injection: 10:25 Time of stress imagin:45 Gated Stress Spect was performed 80 minutes after intravenous Tc-99 Myoview injection. The images were gated to evaluate regional wall motion and calculate ventricular ejection fraction. NUCLEAR IMAGE INTERPRETATION The rest and stress images show normal perfusion, normal contraction and thickening. LV Perfusion 1 The rest and stress images show normal perfusion. CONCLUSION 1. No exercise induced myocardial ischemia. Normal perfusion both at rest and stress. 2. Normal Gated LVEF 58% with normal perfusion, thickening and wall motion 3. Normal Exercise EKG response @ 73% MPHR ( see full report)
== END 2017-10-12 14:06 | disposition home or self-care (01) | DRG 313 ==
LOC: H.ER 16:14 → H.ERHOLD 19:50 → H.TEL 10-10 00:56 → OBSVTOIN 10-10 11:09
PROVIDERS: ADMIT Internal Medicine; ATTEND Internal Medicine
PROC: 3E0234Z Introduction of Serum, Toxoid and Vaccine into Muscle, Percutaneous Approach (ICD-10-PCS; principal; 2017-10-10)
DX: R07.9 Chest pain, unspecified (principal); E11.65 Type 2 diabetes mellitus with hyperglycemia; R91.8 Other nonspecific abnormal finding of lung field; Z23 Encounter for immunization; I10 Essential (primary) hypertension; E78.5 Hyperlipidemia, unspecified; E78.1 Pure hyperglyceridemia

== ENCOUNTER 2017-12-26 11:57 | Emergency (ER) | payer MEDICARE ==
[2017-12-26 12:33] VITALS: TEMP 98.2
--- NOTE | 2017-12-26 13:23 | ED PDOC ---
HPI: General Adult Time Seen by Provider: 12/26/17 12:28 Chief Complaint (Nursing): Flu-like Symptoms Chief Complaint (Provider): fever and cough History Per: Patient Additional Complaint(s): 67 yo male, PMH of DM and HTN, presents to ED with complaints of flu like symptons since yesterday - cough/bodyaches/throat pain No fever or chills. no medications taken thus far. Past Medical History Reviewed: Nursing Documentation, Vital Signs Vital Signs: Last Vital Signs Temp 98.2 F 12/26/17 14:53 Pulse 78 12/26/17 14:53 Resp 20 12/26/17 14:53 BP 124/87 12/26/17 14:53 Pulse Ox 99 12/26/17 14:53 - Medical History PMH: Diabetes, HTN Denies: Chronic Kidney Disease - Family History Family History: States: Unknown Family Hx, Hypertension - Living Arrangements Living Arrangements: With Family - Social History Current smoker - smoking cessation education provided: No Alcohol: None Drugs: Denies - Home Medications Home Medications: Ambulatory Orders Medication Instructions Recorded Ergocalciferol (Vitamin D2) 50,000 unit PO QWK 10/09/17 [Vitamin D2] Losartan/Hydrochlorothiazide 1 tab PO DAILY 10/09/17 [Hyzaar 100-12.5 Tablet] Sitagliptin Phos/Metformin HCl 1 tab PO BID 10/09/17 [Janumet 50-1,000 mg Tablet] Tamsulosin [Flomax] 0.4 mg PO DAILY 10/09/17 Acetaminophen [Tylenol 325mg tab] 650 mg PO Q6 PRN tab 10/12/17 Guaifenesin/Pseudoephedrne HCl 1 tab PO DAILY PRN #30 ter 12/26/17 [Mucinex D 600 mg-60 mg] Oseltamivir [Tamiflu] 75 mg PO BID 5 Days cap 12/26/17 Promethazine HCl/Codeine 5 ml PO HS #80 ml 12/26/17 [Prometh-Codein 6.25-10 mg/5 ml] - Allergies Allergies/Adverse Reactions: Allergies Allergy/AdvReac Type Severity Reaction Status Date / Time No Known Allergies Allergy Verified 12/26/17 12:58 Review of Systems ROS Statement: Except As Marked, All Systems Reviewed And Found Negative ENT: Positive for: Nose Congestion Respiratory: Positive for: Cough Physical Exam - Reviewed Nursing Documentation Reviewed: Yes Vital Signs Reviewed: Yes - Physical Exam Appears: Positive for: Well, Non-toxic, No Acute Distress Head Exam: Positive for: ATRAUMATIC, NORMAL INSPECTION, NORMOCEPHALIC Skin: Positive for: Normal Color, Warm, DRY Eye Exam: Positive for: EOMI, Normal appearance, PERRL ENT: Positive for: Normal ENT Inspection Neck: Positive for: Normal, Painless ROM Cardiovascular/Chest: Positive for: Regular Rate, Rhythm Respiratory: Positive for: CNT, Normal Breath Sounds Gastrointestinal/Abdominal: Positive for: Normal Exam, Bowel Sounds, Soft Back: Positive for: Normal Inspection Extremity: Positive for: Normal ROM Neurologic/Psych: Positive for: Alert, Oriented - ECG O2 Sat by Pulse Oximetry: 96 Medical Decision Making Medical Decision Making: Pt afebrile CXR: NAD, as read by MARVIN Supportive care measures discussed, as well as PMD follow up Returnt o ED with any concerns Disposition - Clinical Impression Clinical Impression: Influenza-like symptoms - Patient ED Disposition Is Patient to be Admitted: No - Disposition Disposition: Routine/Home Disposition Time: 13:00 Condition: STABLE Prescriptions: Guaifenesin/Pseudoephedrne HCl [Mucinex D 600 mg-60 mg] 1 tab PO DAILY PRN #30 ter PRN Reason: congestion Oseltamivir [Tamiflu] 75 mg PO BID 5 Days cap Promethazine HCl/Codeine [Prometh-Codein 6.25-10 mg/5 ml] 5 ml PO HS #80 ml Instructions: Cough, Runny Nose, and the Common Cold (DC) Forms: [employer] (Malian)
--- NOTE | 2017-12-26 14:08 | RAD ---
HISTORY: fever and cpugh COMPARISON: 10/09/2017 TECHNIQUE: Chest PA and lateral FINDINGS: LUNGS: No active pulmonary disease. PLEURA: No significant pleural effusion identified. No pneumothorax apparent. CARDIOVASCULAR: Normal. OSSEOUS STRUCTURES: No significant abnormalities. VISUALIZED UPPER ABDOMEN: Normal. OTHER FINDINGS: None. IMPRESSION: No active disease.
[2017-12-26 14:54] VITALS: BP 124/87; PULSE 78; RESP 20
[2017-12-28 22:10] VITALS: O2SAT 96
== END 2017-12-26 15:20 | disposition home or self-care (01) ==
LOC: H.ER 11:57
DX: J11.1 Influenza due to unidentified influenza virus with other respiratory manifestations (principal); E11.9 Type 2 diabetes mellitus without complications; I10 Essential (primary) hypertension

== ENCOUNTER 2019-03-15 18:01 | Emergency (ER) | payer MEDICARE ==
[2019-03-15] MEDS ORDERED: Tdap Vaccine 0.5 ml Vial (10-64 yrs) IM ONE (19:02)
[2019-03-15] MEDS ORDERED: Povidone Iodine 10% OINTMENT TOP STA (19:03)
[2019-03-15] MEDS ORDERED: Lidocaine 1% Inj (20ml) IJ STA (19:03)
[2019-03-15] MEDS ORDERED: Lidocaine Hydrochloride 1% 10 ML ONE (19:13)
--- NOTE | 2019-03-15 19:41 | ED PDOC ---
HPI: Eye Injury/Pain Time Seen by Provider: 03/15/19 18:19 Chief Complaint (Nursing): Trauma Chief Complaint (Provider): Left eye injury History Per: Patient History/Exam Limitations: no limitations Onset/Duration Of Symptoms: Hrs (2PM at work ) Current Symptoms Are (Timing): Still Present Additional Complaint(s): 69 year old male with pmhx of HTN and diabetes presents to the ED for an evaluation of left eye injury onset this afternoon. Patient states about 2pm at work, while lowering a truck trailer made out of metal, it slipped, hitting him on the left eyelid. He took Advil 400mg at 3pm with some improvement in pain. Otherwise, patient denies falling backwards, head trauma, loss of consciousness, nausea, vomiting, dizziness or visual changes. Patient is not up-to-date with his tetanus shot. Past Medical History Reviewed: Historical Data, Nursing Documentation, Vital Signs Vital Signs: Last Vital Signs Temp 97.7 F 03/15/19 18:10 Pulse 67 03/15/19 18:10 Resp 16 03/15/19 18:10 BP 131/84 03/15/19 18:10 Pulse Ox 96 03/15/19 18:10 Primary Care Provider: Doctor,Conversion - Medical History PMH: Diabetes, HTN Denies: Chronic Kidney Disease - Family History Family History: States: Unknown Family Hx, Hypertension - Immunization History Hx Tetanus Toxoid Vaccination: No Hx Influenza Vaccination: No Hx Pneumococcal Vaccination: No - Home Medications Home Medications: Ambulatory Orders Medication Instructions Recorded Ergocalciferol (Vitamin D2) 50,000 unit PO QWK 10/09/17 [Vitamin D2] Losartan/Hydrochlorothiazide 1 tab PO DAILY 10/09/17 [Hyzaar 100-12.5 Tablet] Sitagliptin Phos/Metformin HCl 1 tab PO BID 10/09/17 [Janumet 50-1,000 mg Tablet] Tamsulosin [Flomax] 0.4 mg PO DAILY 10/09/17 Acetaminophen [Tylenol 325mg tab] 650 mg PO Q6 PRN tab 10/12/17 Guaifenesin/Pseudoephedrne HCl 1 tab PO DAILY PRN #30 ter 12/26/17 [Mucinex D 600 mg-60 mg] Oseltamivir Cap [Tamiflu] 75 mg PO BID 5 Days cap 02/20/18 Promethazine HCl/Codeine 5 ml PO HS #80 ml 12/26/17 [Prometh-Codein 6.25-10 mg/5 ml] Bacitracin OINT 1 applic TP TID 7 Days tube 03/15/19 Cephalexin [Keflex] 500 mg PO QID 5 Days capsule 03/15/19 Ibuprofen [Motrin Tab] 600 mg PO Q6 PRN 7 Days tab 03/15/19 - Allergies Allergies/Adverse Reactions: Allergies Allergy/AdvReac Type Severity Reaction Status Date / Time No Known Allergies Allergy Verified 03/15/19 18:09 Review of Systems ROS Statement: Except As Marked, All Systems Reviewed And Found Negative Eyes: Positive for: Pain. Negative for: Vision Change Gastrointestinal: Negative for: Nausea, Vomiting Neurological: Negative for: Headache, Dizziness, Other (LOC or head trauma ) Physical Exam - Reviewed Nursing Documentation Reviewed: Yes Vital Signs Reviewed: Yes - Physical Exam Appears: Positive for: Uncomfortable Eye Exam: Positive for: EOMI, PERRL, Other (positive tenderness on palpation of left eyebrow and lower eye and no bleeding). Negative for: Normal appearance (on the left eyelid, patient has approximately 3.5 to 4cm superficial linear laceration with minimal bleeding and positive left infraorbital ecchymosis ), Conjunctival injection Neurological/Psych: Positive for: Awake, Alert, Normal Tone, Oriented (x3) - ECG O2 Sat by Pulse Oximetry: 96 (RA) Pulse Ox Interpretation: Normal Medical Decision Making Medical Decision Making: Time:19:02 Impression: left eye injury Plan: Maxillofacial w/o contrast CT Tetanus 0.5ml IM Povidone Iodine 10% Lidocaine 1% 10ml IJ Acetaminophen 975mg PO Pastic surgery consult placed 19:[address] Lindsay who will come in to perform laceration repair 20:03 EXAM: CT Maxillofacial without Intravenous Contrast. CLINICAL HISTORY: Trauma to left eyebrow TECHNIQUE: Axial computed tomography images of the face without intravenous contrast. Sagittal and coronal reformatted images were generated. 879.18 mGy-cm CONTRAST: Without COMPARISON: None provided. FINDINGS: BONES: No acute fracture or aggressive appearing osseous lesion. The mandible is intact. SOFT TISSUES: Diffuse left periorbital swelling and hematoma. SINUSES: The sinuses are clear. ORBITS: The orbits are normal. No retrobulbar hematoma or mass. IMPRESSION: Diffuse left periorbital swelling and hematoma. No fracture, Electronically signed on March 15, 2019 8:03:06 PM EDT by: Duy William M.D., M.B.A., Certified By [employer] Trained MRI and CT Specialist 21:50 Currently, plastic surgeon at bedside Scribe Attestation: Documented by Doris Tan, acting as a scribe for Deanna Sher PA-C. Provider Scribe Attestation: All medical record entries made by the Scribe were at my direction and personally dictated by me. I have reviewed the chart and agree that the record accurately reflects my personal performance of the history, physical exam, medical decision making, and the department course for this patient. I have also personally directed, reviewed, and agree with the discharge instructions and disposition. Disposition - Clinical Impression Clinical Impression: Eyelid laceration, left - Patient ED Disposition Is Patient to be Admitted: No Discussed With : Janina Lindsay Counseled Patient/Family Regarding: Studies Performed, Diagnosis, Need For Followup - Disposition Referrals: Janina Lindsay MD [Medical Doctor] - Disposition: Routine/Home Disposition Time: 21:56 Condition: STABLE Additional Instructions: Follow up with Dr. Lindsay in his office in one week for suture removal. Take antibiotics as prescribed and Bacitracin to wound 3 times per day. Return to ER if you develop fevers, chills, redness or pus drainage from wound. Take Tylenol or Ibuprofen for pain. Prescriptions: Bacitracin OINT 1 applic TP TID 7 Days tube Cephalexin [Keflex] 500 mg PO QID 5 Days capsule Ibuprofen [Motrin Tab] 600 mg PO Q6 PRN 7 Days tab PRN Reason: Pain, Moderate (4-7) Instructions: Wound Care (DC), Laceration Repair With Stitches (DC) Forms: [facility] (Lux[place]bourgish), [facility] ED School/Work Excuse Print Language: OMANI
[2019-03-15 21:58] VITALS: BP 139/90; PULSE 58; RESP 17; TEMP 98
[2019-03-16 00:40] VITALS: O2SAT 96
--- NOTE | 2019-03-16 16:46 | CT ---
Date of service: 03/15/2019 PROCEDURE: CT MAXILLOFACIAL BONES WITHOUT CONTRAST HISTORY: trauma to left eyebrow COMPARISON: None available. TECHNIQUE: Contiguous axial CT images of the maxillofacial bones were obtained. Coronal and sagittal reformats were generated. Radiation dose: Total exam DLP = 879.18 mGy-cm. This CT exam was performed using one or more of the following dose reduction techniques: Automated exposure control, adjustment of the mA and/or kV according to patient size, and/or use of iterative reconstruction technique. FINDINGS: NASAL BONES: Unremarkable. ORBITS: [id number] left periorbital edema is appreciate superiorly inferiorly as well as laterally with extension into the left upper cheek soft tissues overlying the left maxilla. No laid orbital fracture bilaterally or at the left axilla. No postseptal edema or suspicious orbital findings other than superficial left orbital posttraumatic cellulitis. PARANASAL SINUSES/ MASTOIDS: Clear. MAXILLA: Unremarkable. MANDIBLE/ TEMPOROMANDIBULAR JOINTS: Unremarkable. SKULL BASE: Unremarkable. TEMPORAL BONES: Middle ears and mastoid grossly unremarkable. OTHER FINDINGS: None. IMPRESSION: Posttraumatic soft tissue edema is mild to moderate the left preseptal periorbital and cheek soft tissues as per above. No fracture of the facial bones or the left orbit in particular. Concordant preliminary report from Aamir, 03/15/2019, 8:03 p.m.
--- NOTE | 2019-03-20 03:46 | OP ---
PROCEDURE DATE: 03/15/2019 PREOPERATIVE DIAGNOSIS: 3 cm left eyebrow laceration. POSTOPERATIVE DIAGNOSIS: 3 cm left eyebrow laceration. PROCEDURE PERFORMED: Complex repair of 3 cm left eyebrow laceration. ANESTHESIA: Regional. Left supraorbital nerve block. INDICATIONS FOR PROCEDURE: Please refer to my separately dictated ER consultation for history and physical. DESCRIPTION OF PROCEDURE: As follows: Lidocaine 1% with 1:100,000 epinephrine was used. After allowing sufficient time for the anesthetic to take effect, the wound was thoroughly irrigated with normal saline. Any retained debris was manually removed. The area was prepped and draped in the usual clean and sterile manner. We used a 5-0 Monocryl to line up and approximate the orbicularis oculi muscle in interrupted fashion. I used a 5-0 Monocryl to line up and approximate the deep dermis and subcutaneous tissue in an interrupted fashion. We then closed the 3 cm open wound with a running 5-0 nylon suture. After doing this, the wound edges the nicely aligned. The patient tolerated the procedure well, and eventually discharged home from the emergency room in stable condition. Postop wound care, limitations of physical activities, the fact that there will be scar, the possibility of alopecia in the area were discussed with the patient, and all questions were answered. Janina Lindsay MD
--- NOTE | 2019-03-20 09:19 | CON ---
DATE: 03/15/2019 ER CONSULTATION SURGEON: Janina Lindsay MD HISTORY OF PRESENT ILLNESS: This is a 69-year-old male who hits his head on a metal trailer while at work sustaining a 3-cm laceration to his left eyebrow. The laceration is deep involving the muscle. 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 The orbital bone is tender. intact. There were no signs of any facial fracture. He has no double vision. 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 The possibility of alopecia in the area was also discussed and the need for antibiotics. Janina Lindsay MD
== END 2019-03-15 21:56 | disposition home or self-care (01) ==
LOC: H.ER 18:01
DX: S01.112A Laceration without foreign body of left eyelid and periocular area, initial encounter (principal); Z23 Encounter for immunization; E11.9 Type 2 diabetes mellitus without complications; I10 Essential (primary) hypertension; Z79.899 Other long term (current) drug therapy

== ENCOUNTER 2019-04-01 11:13 | Emergency (ER) | payer MEDICARE ==
[2019-04-01 11:17] VITALS: BMI 28.5
[2019-04-01 11:18] VITALS: TEMP 98.7; O2SAT 99
--- NOTE | 2019-04-01 11:43 | ED PDOC ---
HPI: General Adult Time Seen by Provider: 04/01/19 11:41 Chief Complaint (Nursing): Wound Check Chief Complaint (Provider): WOUND CHECK History Per: Patient (69 Y/O MALE HERE FOR WOUND CHECK. PATIENT STATES HE HAD EYEBROW LACERATION REPAIRED 03/15/[address] LEWIS. PATIENT WAS GIVEN RX KEFLEX WHICH HE DID NOT FILL. STATES HE LEFT MESSAGE WITH OFFICE BUT DID NOT RECEIVE RETURN CALL TO MAKE APPOINTMENT WITH SURGEON. DENIES ANY FEVERS OR CHILLS NOTES SWELLING BY EYEBROW AND NOTED SMALL AMOUNT OF DISCHARGE.) Past Medical History Reviewed: Historical Data, Nursing Documentation, Vital Signs Vital Signs: Last Vital Signs Temp 98.7 F 04/01/19 11:17 Pulse 100 H 04/01/19 11:17 Resp 18 04/01/19 11:17 BP 160/91 H 04/01/19 11:17 Pulse Ox 99 04/01/19 11:17 Primary Care Provider: Omkar [place] - Medical History PMH: Diabetes, HTN Denies: Chronic Kidney Disease - Family History Family History: States: Unknown Family Hx, Hypertension - Immunization History Hx Tetanus Toxoid Vaccination: No Hx Influenza Vaccination: No Hx Pneumococcal Vaccination: No - Home Medications Home Medications: Ambulatory Orders Medication Instructions Recorded Ergocalciferol (Vitamin D2) 50,000 unit PO QWK 10/09/17 [Vitamin D2] Losartan/Hydrochlorothiazide 1 tab PO DAILY 10/09/17 [Hyzaar 100-12.5 Tablet] Sitagliptin Phos/Metformin HCl 1 tab PO BID 10/09/17 [Janumet 50-1,000 mg Tablet] Tamsulosin [Flomax] 0.4 mg PO DAILY 10/09/17 Acetaminophen [Tylenol 325mg tab] 650 mg PO Q6 PRN tab 10/12/17 Guaifenesin/Pseudoephedrne HCl 1 tab PO DAILY PRN #30 ter 12/26/17 [Mucinex D 600 mg-60 mg] Oseltamivir Cap [Tamiflu] 75 mg PO BID 5 Days cap 12/26/17 Promethazine HCl/Codeine 5 ml PO HS #80 ml 12/26/17 [Prometh-Codein 6.25-10 mg/5 ml] Bacitracin OINT 1 applic TP TID 7 Days tube 03/15/19 Cephalexin [Keflex] 500 mg PO QID 5 Days capsule 03/15/19 Ibuprofen [Motrin Tab] 600 mg PO Q6 PRN 7 Days tab 03/15/19 Clindamycin [Cleocin] 300 mg PO Q8 #21 cap 04/01/19 - Allergies Allergies/Adverse Reactions: Allergies Allergy/AdvReac Type Severity Reaction Status Date / Time No Known Allergies Allergy Verified 03/15/19 18:09 Review of Systems ROS Statement: Except As Marked, All Systems Reviewed And Found Negative Physical Exam - Reviewed Nursing Documentation Reviewed: Yes Vital Signs Reviewed: Yes - Physical Exam Appears: Positive for: Well, Non-toxic, No Acute Distress Head Exam: Positive for: ATRAUMATIC, NORMAL INSPECTION, NORMOCEPHALIC Skin: Positive for: Warm. Negative for: Normal Color (LEFT EYEBROW HEALING WOUND NO SUTURES NOTED. SMALL HARD SWELLING NOTED WITH NO PRULULENT DISCHARGE EXPRESSED. NO SIGNS OF ERYTHEMA.) Eye Exam: Positive for: EOMI, Normal appearance, PERRL ENT: Positive for: Normal ENT Inspection Neck: Positive for: Normal, Painless ROM Cardiovascular/Chest: Positive for: Regular Rate, Rhythm Respiratory: Positive for: CNT, Normal Breath Sounds Gastrointestinal/Abdominal: Positive for: Normal Exam, Soft Back: Positive for: Normal Inspection Extremity: Positive for: Normal ROM Neurological/Psych: Positive for: Awake, Alert, Normal Tone - ECG O2 Sat by Pulse Oximetry: 99 - Progress ED Course And Treament: D/W DR LEWIS. WILL SEE PATIENT TOMORROW IN OFFICE. CLINDAMYCIN RX TO BE GIVEN WELL. Disposition - Clinical Impression Clinical Impression: Encounter for wound re-check, Facial swelling - Patient ED Disposition Is Patient to be Admitted: No - Disposition Referrals: Janina Lewis MD [Medical Doctor] - Disposition: Routine/Home Disposition Time: 11:53 Condition: FAIR Additional Instructions: SIGA CON DR DEBBIE YORK A LAS 2PM [place] EN [address] Prescriptions: Clindamycin [Cleocin] 300 mg PO Q8 #21 cap Instructions: Wound Care (DC) Print Language: MALAY
[2019-04-01 12:23] VITALS: BP 144/82; PULSE 93; RESP 20
== END 2019-04-01 11:54 | disposition home or self-care (01) ==
LOC: H.ER 11:13
DX: Z48.02 Encounter for removal of sutures (principal)